=== PATIENT | male | born 1960 | race African-American/Black ===

== ENCOUNTER 2019-03-03 20:00 | Emergency (ER) | payer MEDICARE ==
[~2019-03-03] VITALS: Ht 188 cm; Wt 104.3 kg
[2019-03-03] MEDS ORDERED: NAPROSYN500 MG PO (20:22)
[2019-03-03] MEDS ORDERED: TETRACAINE HCL 0.5% OPTH SOLN 4 ML BTL ONE (20:37)
[2019-03-03] MEDS ORDERED: FLUORESCEIN SOD(OPTH) 1 MG STRP ONE (20:39)
[2019-03-03] MEDS ORDERED: TETRACAINE HCL 0.5% OPTH SOLN 4 ML BTL OP ONE (20:45)
[2019-03-03] MEDS ORDERED: FLUORESCEIN SOD(OPTH) 1 MG STRP OP ONE (20:45)
[2019-03-03] MEDS ORDERED: KETOROLAC TROMETHAMINE 60 MG/2 ML VIAL IM ONE (20:45)
--- NOTE | 2019-03-03 20:45 | NUR ---
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
[2019-03-03] MEDS ORDERED: KETOROLAC TROMETHAMINE 30 MG/ML VIAL ONE (20:52)
--- NOTE | 2019-03-03 20:55 | NUR ---
US AT BEDSIDE
--- NOTE | 2019-03-03 21:46 | Diagnostic Imaging Report ---
Exam: Testicular ultrasound. Clinical History: Right testicular pain. Findings: Sonographic evaluation of the testicles. Both testes are normal in echogenicity and size without intratesticular mass. Normal Doppler flow is demonstrated in bilateral testicles. Negative for hydrocele or varicocele. Both epididymides are normal in appearance. The right testes measures 3.7 x 1.8 x 3.0 and the left testes measures 3.7 x 1.6 x 2.7 cm. The right epidiymis measures 0.6 x 0.6 x 0.6 cm and the left epididymis measures 0.9 x 0.9 x 0.6 cm Impression: Unremarkable testicular ultrasound. No sonographic evidence of testicular torsion. Signed by: Dr. Collin Viera MD on 03/03/2019 9:42 PM
== END 2019-03-03 22:17 | disposition home or self-care (01) ==
LOC: FSED 20:00
DX: H00.012 Hordeolum externum right lower eyelid (principal); N50.811 Right testicular pain; H54.40 Blindness, one eye, unspecified eye
CPT/HCPCS: 76870; 81003; 93970; 99283; J1885

== ENCOUNTER 2019-06-17 23:03 | Emergency (ER) | payer MEDICARE ==
[~2019-06-17] VITALS: Ht 188 cm; Wt 106.6 kg
[~2019-06-17 23:03] MED LIST: NAPROSYN500 MG PO
--- OUTSIDE RECORDS SUMMARY | 2019-06-17 23:06 | XMS REPORT ---
Author Author [facility] Address Unknown Phone Unavailable Care Team Providers [employer] Name Role Phone Haley JEROME Unavailable Unavailable Problems This patient has no known problems. Allergies, Adverse Reactions, Alerts This patient has no known allergies or adverse reactions. Medications This patient has no known medications. Results Test Description Test Time Test Comments Text Results Atomic Results Result Comments TESTICULAR-HOPD 2019-03-03 21:39:00 [place] [address] Patient Name: JOSH ATWOOD MR #: [id number] : 1960 Age/Sex: 58/M Req #: [id number] [facility] Physician: Ordered by: SELENE JEROME MD Report #: [id number] Location: [facility] Room/Bed: Procedure: [id number] [facility]/ TESTICULAR-HOPD Exam Date: 03/03/19 Exam Time: 2104 REPORT STATUS: Signed Exam: Testicular ultrasound. Clinical History: Right testicular pain. Findings: Sonographic evaluation of the testicles. Both testes are normal in echogenicity and size without intratesticular mass. Normal Doppler flow is demonstrated in bilateral testicles. Negative for hydrocele or varicocele. Both epididymides are normal in appearance. The right testes measures 3.7 x 1.8 x 3.0 and the left testes measures 3.7 x 1.6 x 2.7 cm. The right epidiymis measures 0.6 x 0.6 x 0.6 cm and the left epididymis measures 0.9 x 0.9 x 0.6 cm Impression: Unremarkable testicular ultrasound. No sonographic evidence of te sticular torsion. Signed by: Dr. Pallavi Lindsay MD on 03/03/2019 9:42 PM Dictated By: PALLAVI LINDSAY MD 41 Transcribed By: KALINA on 03/03/192141 COPY TO: SELENE JEROME MD
[2019-06-18] MEDS: KETOROLAC TROMETHAMINE 30 MG/ML VIAL IM ONE (00:15)
[2019-06-18] MEDS ORDERED: KETOROLAC TROMETHAMINE 30 MG/ML VIAL ONE (00:18)
[2019-06-18 01:26] VITALS: BP 126/79
== END 2019-06-18 01:14 | disposition home or self-care (01) ==
LOC: FSED 23:03
DX: M54.6 Pain in thoracic spine (principal); M54.16 Radiculopathy, lumbar region; M54.14 Radiculopathy, thoracic region; M54.32 Sciatica, left side; S33.101A Dislocation of unspecified lumbar vertebra, initial encounter; G89.29 Other chronic pain
CPT/HCPCS: 96372; 99282; J1885

== ENCOUNTER 2020-06-01 09:46 | Emergency (ER) | payer MEDICARE ==
[~2020-06-01] VITALS: Ht 188 cm; Wt 106.6 kg
[2020-06-01 10:33] LABS: BASOPHILS % 0.6 % (0.0-1.0); CLARITY,URINE CLEAR (CLEAR); COLOR,URINE YELLOW (YELLOW); EOSINOPHILS # (AUTO) 0.1 (0.0-0.4); EOSINOPHILS % 1.7 % (0.0-6.0); HEMATOCRIT 36.9 % (38.2-49.6); HEMOGLOBIN 12.6 g/dL (14.0-18.0); LYMPHOCYTES # (AUTO) 2.8 (1.0-3.2); LYMPHOCYTES % 41.5 % (18.0-39.1); MEAN CORPUSCULAR HEMOGLOBIN 29.1 pg (28-32); MEAN CORPUSCULAR HGB CONC 34.1 g/dL (31-35); MEAN CORPUSCULAR VOLUME 85.2 fL (81-99); MONOCYTES # (AUTO) 0.6 (0.2-0.8); MONOCYTES % 9.5 % (4.4-11.3); NEUTROPHILS # (AUTO) 3.1 (2.1-6.9); NEUTROPHILS % 46.4 % (38.7-80.0); PLATELET COUNT 287 x10e3/uL (140-360); RED BLOOD COUNT 4.33 x10e6/uL (4.3-5.7); RED CELL DISTRIBUTION WIDTH 13.6 % (11.7-14.4)
[2020-06-01 10:34] LABS: KETONES,URINE NEGATIVE (NEGATIVE); LEUKOCYTE ESTERASE ,URINE NEGATIVE (NEGATIVE); NITRITE,URINE NEGATIVE (NEGATIVE); PROTEIN,URINE DIPSTICK NEGATIVE (NEGATIVE); URINE UROBILINOGEN 0.2 mg/dL (0.2 - 1)
[2020-06-01 10:43] LABS: ALANINE AMINOTRANSFERASE 29 IU/L (0-55); ALBUMIN/GLOBULIN RATIO 1.1 (0.8-2.0); ALKALINE PHOSPHATASE 76 IU/L (40-150); ANION GAP 11.8 mmol/L (8-16); BLOOD UREA NITROGEN 10 mg/dL (7-26); BUN/CREATININE RATIO 10 (6-25); CALCIUM 9.1 mg/dL (8.4-10.2); CARBON DIOXIDE 24 mmol/L (22-29); CHLORIDE 107 mmol/L (98-107); CREATININE, SERUM 0.97 mg/dL (0.72-1.25); EST GLOMERULAR FILTRATION RATE > 60 ML/MIN (60-); GLUCOSE 124 mg/dL (74-118); POTASSIUM 3.8 mmol/L (3.5-5.1); RBC,URINE 0-5 /HPF (0-5); SODIUM 139 mmol/L (136-145); WBC,URINE (MAN) 0-5 /HPF (0-5)
[2020-06-01] MEDS ORDERED: BACTRIM DS TAB1 EACH PO (11:51)
[2020-06-01 12:14] VITALS: BP 122/85
== END 2020-06-01 12:15 | disposition home or self-care (01) ==
LOC: ER 10:00
DX: N30.91 Cystitis, unspecified with hematuria (principal); R10.32 Left lower quadrant pain; H54.62 Unqualified visual loss, left eye, normal vision right eye; Z89.511 Acquired absence of right leg below knee
CPT/HCPCS: 36415; 74176; 80053; 81001; 85025; 87086; 99284

== ENCOUNTER 2023-10-08 19:25 | Emergency (ER) | payer MEDICARE ==
[~2023-10-08] VITALS: Ht 188 cm; Wt 98.0 kg
[~2023-10-08 19:25] MED LIST changes: +BACTRIM DS TAB1 EACH PO; +CLEOCIN HCL300 MG PO
[2023-10-08 19:30] VITALS: PULSE 70; RESP 18; TEMP 97.8; O2SAT 98
[2023-10-08] MEDS ORDERED: IBUPROFEN200 MG PO (20:38)
[2023-10-08] MEDS ORDERED: ACETAMINOPHEN-1 EAC4 PO (20:38)
[2023-10-08 21:39] VITALS: BP 145/80; PULSE 77; RESP 18; TEMP 98.1
== END 2023-10-08 21:49 | disposition home or self-care (01) ==
LOC: FSED 19:37
DX: S83.92XA Sprain of unspecified site of left knee, initial encounter (principal); W19.XXXA Unspecified fall, initial encounter; Y92.838 Other recreation area as the place of occurrence of the external cause; Z89.511 Acquired absence of right leg below knee; Z88.0 Allergy status to penicillin; Z59.6 Low income
CPT/HCPCS: 99284